=== PATIENT | female | born 2005 | race Two or more races ===

== ENCOUNTER 2023-06-30 18:06 | Emergency (ER) | payer OTHER, SELFPAY ==
--- NOTE | ~2023-06-30 | CT_ITS ---
EXAMINATION: CT ABDOMEN AND PELVIS WITH CONTRAST CLINICAL INFORMATION: Flank pain. COMPARISON: None available. TECHNIQUE: Multidetector volumetric images were obtained from the superior aspect of the liver through the pubic symphysis following administration 85 mL of Omnipaque 350 intravenous contrast. Sagittal and coronal reformatted images were obtained on the technologist's workstation. Oral contrast: No This CT examination was performed using dose optimization techniques as appropriate, variously including the following: *Automated exposure control *Adjustment of mA and/or kV according to patient size (this includes techniques or standardized protocols for targeted exams where dose is matched to indication/reason for exam; i.e. extremities or head) *Use of iterative reconstruction technique DLP: 413 mGy-cm FINDINGS: LUNG BASES: The visualized lung bases are unremarkable. LIVER, GALLBLADDER, AND BILIARY TREE: The liver is normal in size, shape, and attenuation. No focal hepatic lesion or biliary ductal dilatation is present. The gallbladder is unremarkable with no evidence of radiopaque gallstones, gallbladder wall thickening, or obvious pericholecystic inflammatory changes. PANCREAS: Unremarkable. SPLEEN: Unremarkable. ADRENAL GLANDS: Unremarkable. KIDNEYS AND URETERS: The kidneys are normal in size, shape, and attenuation. No hydronephrosis, hydroureter, or calculi seen. No perinephric stranding. BLADDER: There is mild urinary bladder wall thickening. GASTROINTESTINAL TRACT: The small and large bowel are unremarkable. A small tubular structure along the inferior cecum is likely a normal appendix. ABDOMINAL WALL: No significant hernia is appreciated. LYMPH NODES: Normal. VASCULAR: Unremarkable. PELVIC VISCERA: Unremarkable. OSSEOUS STRUCTURES: Unremarkable. CT/CT abdomen pelvis w IV con IMPRESSION: There is apparent mild urinary bladder wall thickening which needs correlation with urinalysis as cystitis considered. No other significant abnormality identified. Fleischner guidelines were followed.
[2023-06-30 18:17] VITALS: BP 101/52; PULSE 84; RESP 18; TEMP 36.4; O2SAT 97; BMI 22.9
--- NOTE | 2023-06-30 18:20 | ED.GENADULT ---
HPI - General Adult General Chief complaint: General Medical Stated complaint: back pain Time Seen by Provider: 06/30/23 18:37 Source: patient Mode of arrival: ambulatory Limitations: no limitations History of Present Illness HPI narrative: This is a 18-year-old female without significant medical history presenting to the emergency department for evaluation of bilateral flank pain, right worse than left, ongoing for the past week, atraumatic in nature. Patient does report dysuria, difficulty with urination. Rates the pain 10/10, nothing seems to be making it better. Patient reports subjective fevers and chills. Denies numbness, tingling, urinary/bowel incontinence/retention, weakness, nausea, vomiting, headache, vision changes, chest pain and shortness of breath. Patient does report recent UTI that was treated with antibiotics a few weeks ago Related Data Previous Rx's Medication Instructions Recorded cefuroxime axetil 250 mg tablet 250 mg PO BID 7 days #14 tabs 06/30/23 ketorolac 10 mg tablet 10 mg PO TID PRN pain 5 days #15 06/30/23 tabs Allergies Allergy/AdvReac Type Severity Reaction Status Date / Time No Known Allergies Allergy Verified 06/30/23 18:17 Review of Systems Review of Systems: Constitutional : No Weight loss, + Fever, + Chills, ENT/Mouth : No Hearing loss, No Ear Pain, No Nasal Congestion, No Sinus Pain, No Hoarseness, No sore throat, No Rhinorrhea, No Swallowing Difficulty Cardiovascular : No Chest Pain, No SOB Respiratory : No Cough, No Dyspnea Gastrointestinal : No Nausea, No Vomiting, No Diarrhea, No abdominal Pain, No Hematochezia, No Melena Genitourinary : No Dysuria, No Urinary Frequency, No Hematuria, No Urinary Incontinence, Musculoskeletal : positive back pain Skin : No Skin Lesions, No rash Neuro : No Weakness, No Numbness, No Paresthesias, no loss of bowel or bladder incontinence, no saddle anesthesia Yes all other systems are reviewed and are negative [facility] Past Medical History Attestation statement: The following information was validated with the patient. Source: old records reviewed and nursing notes reviewed Social History Social History Advance Directives: No Advance Directives Information Provided: No Physical Exam ED Vital Signs: Vital Signs - 24 hr 06/30/23 18:17 06/30/23 19:40 06/30/23 21:00 Temperature 97.5 F 99.1 F Pulse Rate 84 88 80 Respiratory Rate 18 16 Blood Pressure 101/52 L 114/59 L 116/54 L Pulse Oximetry 97 99 Oxygen Delivery Method Room Air Room Air 06/30/23 21:07 Temperature Pulse Rate Respiratory Rate 18 Blood Pressure Pulse Oximetry Oxygen Delivery Method BMI result Body Mass Index 22.9 Vital signs stable Appearance: Alert.? Oriented X3.? No acute distress.? Head: Normocephalic, atraumatic, no step-offs or deformities Eyes: Pupils equal, round and reactive to light.? CVS: Normal heart rate and rhythm.? Pulses normal.? Respiratory: No respiratory distress.? Breath sounds normal.? Abdomen: Soft and nontender.? Skin: Skin warm and dry.? Normal skin color.? Normal skin turgor.? Extremities: No lower extremity edema.? No calf ttp. 5/5 strength to bilateral upper and lower extremities Back: No midline tenderness, no C-spine tenderness, full range of motion, + CVA tenderness bilaterally w/ b/l lumbar paraspinous tenderness Neuro: Oriented X 3.? No motor deficit.? No sensory deficit. CN 2-12 intact . Ambulating with steady gait normal coordination. No saddle paresthesias. Course Course Course Narrative: 18 yold female presents to the ED for bilateral flank pain with dysruria since yesterday. labs and UA Ordered Reevaluation(s) Reevaluation #1: Patient's UA with leukocyte esterases trace bacteria and blood, concerning for possible UTI. Patient also noted to have leukocytosis 13.4 no left shift at this time infection suspected fluids as well as antibiotics ordered. Chemistry unremarkable. Negative lactic. CT abdomen and pelvis pending. Sign-out given to night provider Branden. Time: 18:58 Reevaluation #2: Patient received in sign-out at change of shift pending CT scan of the abdomen pelvis which did not show any acute findings. Symptoms consistent with pyelonephritis given the flank pain. She received ceftriaxone in the emergency department today. She will be discharged on cefuroxime. Discussed all findings with the patient Time: 21:30 Medications Administered Discontinued Medications Generic Name Dose Route Start Last Admin Trade Name Freq PRN Reason Stop Dose Admin Sodium Chloride 1,000 mls @ 999 mls/hr 06/30/23 18:45 06/30/23 20:56 Ns IV 06/30/23 19:45 Infused .Q1H1M TEVIN Infusion Sodium Chloride 1,878 mls @ 1,878 mls/hr 06/30/23 18:54 06/30/23 20:53 Ns 30 ml/kg infuse over 1 hr (1878 ml) 06/30/23 19:53 1,878 mls/hr IV Administration .Q1H STA Ceftriaxone Sodium 1 gm/ 50 mls @ 100 mls/hr 06/30/23 18:54 06/30/23 21:09 Sodium Chloride IV 06/30/23 19:23 Infused ONCE ONE Infusion Iohexol 100 ml 06/30/23 19:23 06/30/23 19:23 Iohexol 350 Mg/Ml 100 Ml Infus..Btl IV 06/30/23 19:24 85 ml ONCE ONE Administration Ketorolac Tromethamine 30 mg 06/30/23 18:37 06/30/23 18:46 Ketorolac Tromethamine 15 Mg/Ml Vial IVPUSH 06/30/23 18:38 30 mg ONCE ONE Administration Lidocaine 1 patch 06/30/23 18:38 06/30/23 18:48 Lidocaine 4 % Patch Adh..Patch TRANSDERMA 06/30/23 18:39 1 patch ONCE ONE Administration Protocol Morphine Sulfate 2 mg 06/30/23 20:55 06/30/23 21:07 Morphine Sulfate 2 Mg/Ml Cartridge IVPUSH 06/30/23 20:56 2 mg ONCE ONE Administration Protocol Ondansetron HCl 4 mg 06/30/23 20:55 06/30/23 21:07 Ondansetron Hcl 4 Mg/2 Ml Vial IVPUSH 06/30/23 20:56 4 mg ONCE ONE Administration Medical Decision Making Medical Decision Making [facility] Narrative: 1841 18-year-old female presents with atraumatic bilateral flank pain and urinary symptoms for the past week worsening. Reporting subjective fevers and chills. Also reporting recent UTI treated with antibiotics a few weeks ago. Physical exam significant for No midline tenderness, no C-spine tenderness, full range of motion, + CVA tenderness bilaterally w/ b/l lumbar paraspinous tenderness Concerns for possible pyelonephritis versus UTI versus cystitis versus kidney stone versus obstructing uropathy. I do not suspect cauda equina, epidural abscess, cord compression. Will rule out metabolic derangements although unlikely. Will also rule out . Plan at this time labs,ua, imaging Differential Diagnosis Differential Diagnoses: The differential diagnosis associated with the presentation includes Concerns for possible pyelonephritis versus UTI versus cystitis versus kidney stone versus obstructing uropathy. I do not suspect cauda equina, epidural abscess, cord compression. Will rule out metabolic derangements although unlikely. Will also rule out . Admission/Observation Consideration of admission/observation: Escalation of care including admission/observation considered possible Lab Data MDM Lab Attestation statement: I reviewed the patient's lab results. 06/30/23 18:35 06/30/23 18:35 Labs: Lab Results 06/30/23 06/30/23 06/30/23 Range/Units 18:29 18:35 18:41 WBC 13.4 H (4.8-10.8) X10*3/uL RBC 4.39 (4.20-5.50) X10*6/uL Hgb 13.2 (12.0-16.0) g/dl Hct 39.2 (37.0-47.0) % MCV 89.3 (80.0-98.0) fL MCH 30.1 (27.0-33.0) pg MCHC 33.7 (31.0-35.0) g/dl RDW 12.7 (11.0-16.0) % Plt Count 316 (160-400) X10*3/uL MPV 9.8 (9.4-12.3) fL Immature Gran % (Auto) 0.3 (0.0-0.4) % Neut % (Auto) 57.6 (45-73) % Lymph % (Auto) 31.5 (20-40) % [place] % (Auto) 8.3 (2-11) % Eos % (Auto) 1.9 (0-4) % Baso % (Auto) 0.4 (0-2) % Lymph # (Auto) 4.2 (1.2-4.9) X10*3/uL [place] # (Auto) 1.1 (0.1-1.2) X10*3/uL Eos # (Auto) 0.3 (0.0-0.4) X10*3/uL Baso # (Auto) 0.1 (0.0-0.2) X10*3/uL Abs Immat Gran (auto) 0.04 H (0.00-0.03) X10*3/uL Absolute Neuts (auto) 7.7 (2.0-8.3) x10*3/uL Absolute Nucleated RBC 0.000 (0.0-0.012) X10*3/uL Nucleated RBC % (auto) 0.0 (0.0-0.2) /100WBC Sodium 139 (135-145) mmol/L Potassium 4.0 (3.3-5.1) mmol/L Chloride 106 (96-108) mmol/L Carbon Dioxide 22 (22-29) mmol/L Anion Gap 15 (12-20) BUN 13 (9-16) mg/dL Creatinine 0.78 (0.5-1.4) mg/dL Estim Creat Clear Calc 103.4 Estimated GFR > 60 Random Glucose 89 (60-115) mg/dL Lactic Acid 1.0 (0.5-2.0) mmol/L Calcium 10.2 (8.4-10.2) mg/dL Total Bilirubin 0.3 (0.0-1.0) mg/dL AST 18 (5-31) U/L ALT 14 (0-31) U/L Alkaline Phosphatase 71 (39-117) U/L Total Protein 8.3 H (6.5-8.0) g/dL Albumin 4.4 (3.5-5.0) g/dL Urine Color Yellow Urine Appearance Clear Urine pH 6.0 (5.0-9.0) Ur Specific [place] 1.020 (1.005-1.025) Urine Protein Trace (Neg-Trace) mg/dL Urine Glucose (UA) Negative (Negative) mg/dL Urine Ketones Negative (Negative) mg/dL Urine Blood Small (1+) H (Negative) Urine Nitrite Negative (Negative) Ur Leukocyte Esterase Moderate (2+) H (Negative) Urine RBC 6-10 H (0-2) /HPF Urine WBC >50 H (0-5) /HPF Ur Squamous Epith Cells 0-2 (0-2) /HPF Urine Bacteria Trace (None Seen) Hyaline Casts 0-2 (0-2) /LPF Urine Test NEGATIVE (NEGATIVE) Chronic Conditions Patient?s care impacted by: Other (none) Critical Care Time Critical Care Time Critical Care Time: Yes Total Critical Care Time: 35 Attestation: I attest to this time spent taking care of the patient, obtaining history, physical, reviewing labs, imaging, speaking to my attending, speaking to specialist. Discharge Plan Discharge Clinical Impression: UTI symptoms, Acute flank pain Patient Disposition: Home, Self-Care Instructions: Kidney Infection (ED) Additional Instructions: Take your medications as prescribed. If you were prescribed antibiotics today, it is important that you take your medication to their entirety, do not skip any doses, do not finish them early. Follow-up with your primary care provider this week. Return to the emergency department with new or worsening symptoms. Such as fevers, chills, chest pain, shortness of breath, nausea, vomiting, dizziness, headache, vision changes, lethargy In case of emergency call 911 Prescriptions: New cefuroxime axetil 250 mg tablet 250 mg PO BID 7 Days Qty: 14 0RF ketorolac 10 mg tablet 10 mg PO TID PRN (Reason: pain) 5 Days Qty: 15 0RF Referrals: Physician,Unknown J [Primary Care Provider] - 2 days Stand Alone Forms: Work/School Release Interventions: ED Discharge Assessment Last Done: 06/30/23 21:58 Discharge Date/Time: 06/30/23 21:58
[2023-06-30 18:41] LABS: MANUAL DIFF FLAG NO
[2023-06-30 18:44] LABS: Appearance Urine Clear; Color Urine Yellow; Glucose Urine UA Negative (Negative); Leukocyte Esterase Urine Moderate (2+) (Negative); Nitrite Urine Negative (Negative); UMIC TRIGGER UACC YES; Urine Blood Small (1+) (Negative); Urine Ketones Negative (Negative); Urine Protein Trace mg/dL (Neg-Trace)
[2023-06-30 18:45] LABS: UPreg QC Valid YES; Urine Pregnancy NEGATIVE (NEGATIVE)
[2023-06-30 18:46] LABS: Bacteria Urine Trace (None Seen); Hyaline Casts Urine 0-2 /LPF (0-2); Squamous Epithelial Cell Urine 0-2 /HPF (0-2); UACC Culture Trigger YES; WBC Urine >50 /HPF (0-5)
[2023-06-30] MEDS: Ketorolac Tromethamine 15 MG/ML VIAL 30 MG IVPUSH (18:46)
[2023-06-30] MEDS: 0.9 % Sodium Chloride 1,000 ML 999 ML IV (18:46)
[2023-06-30 18:47] LABS: Basophils Absolute Auto 0.1 X10*3/uL (0.0-0.2); Basophils Percent Auto 0.4 % (0-2); Eosinophils Absolute Auto 0.3 X10*3/uL (0.0-0.4); Eosinophils Percent Auto 1.9 % (0-4); Hematocrit 39.2 % (37.0-47.0); Hemoglobin 13.2 g/dl (12.0-16.0); Imm Gran Abs Auto 0.04 X10*3/uL (0.00-0.03); Imm Gran Pct Auto 0.3 % (0.0-0.4); Lymphocytes Absolute Auto 4.2 X10*3/uL (1.2-4.9); Lymphocytes Percent Auto 31.5 % (20-40); Mean Corpuscular HGB Conc 33.7 g/dl (31.0-35.0); Mean Corpuscular Hemoglobin 30.1 pg (27.0-33.0); Mean Corpuscular Volume 89.3 fL (80.0-98.0); Mean Platelet Volume 9.8 fL (9.4-12.3); Monocytes Absolute Auto 1.1 X10*3/uL (0.1-1.2); Monocytes Percent Auto 8.3 % (2-11); Neutrophils Absolute Auto 7.7 x10*3/uL (2.0-8.3); Neutrophils Percent Auto 57.6 % (45-73); Platelet Count 316 X10*3/uL (160-400); Red Blood Count 4.39 X10*6/uL (4.20-5.50); Red Cell Distribution Width 12.7 % (11.0-16.0); White Blood Count 13.4 X10*3/uL (4.8-10.8)
[2023-06-30] MEDS: Lidocaine 4 % Patch ADH..PATCH 1 PATCH TRANSDERMA (18:48)
[2023-06-30 18:56] LABS: Alanine Aminotransferase 14 U/L (0-31); Albumin Level 4.4 g/dL (3.5-5.0); Alkaline Phosphatase 71 U/L (39-117); Anion Gap 15 (12-20); Aspartate Amino Transferase 18 U/L (5-31); Bilirubin Total 0.3 mg/dL (0.0-1.0); Blood Urea Nitrogen 13 mg/dL (9-16); Calcium 10.2 mg/dL (8.4-10.2); Carbon Dioxide 22 mmol/L (22-29); Chloride 106 mmol/L (96-108); Creatinine Clr Calc Pharmacy 103.4; Estimated Glomerular Filt Rate > 60; Glucose Random 89 mg/dL (60-115); Sodium 139 mmol/L (135-145); Total Protein 8.3 g/dL (6.5-8.0)
--- NOTE | 2023-06-30 18:57 | PC.NURSE ---
second set of blood cultures obtained, pt medicated per MAR- 1L NS infusing per order, plan for CT call lozoya within reach, care ongoing
[2023-06-30] MEDS: iohexoL 350 MG/ML 100 ML INFUS..BTL IV (19:23)
[2023-06-30] MEDS: cefTRIAXone sodium 1 GM in 0.9 % Sodium Chloride 50 ML IV (19:34)
[2023-06-30 19:40] VITALS: BP 114/59; PULSE 88; RESP 16; TEMP 37.3; O2SAT 99
[2023-06-30 21:00] VITALS: BP 116/54; PULSE 80
[2023-06-30 21:07] VITALS: RESP 18
[2023-06-30] MEDS: Morphine Sulfate 2 MG/ML CARTRIDGE IVPUSH (21:07)
[2023-06-30] MEDS: ondansetron HCL 4 MG/2 ML VIAL IVPUSH (21:07)
[2023-06-30 21:32] VITALS: BP 123/63; PULSE 89; RESP 16; TEMP 36.6; O2SAT 99
== END 2023-06-30 21:58 | disposition home or self-care (01) ==
PROVIDERS: Physician Assistant; Emergency Provider Emergency Medicine
DX: R10.9 Unspecified abdominal pain (principal); N39.0 Urinary tract infection, site not specified; B95.7 Other staphylococcus as the cause of diseases classified elsewhere
CPT/HCPCS: 36415; 74177; 80053; 81001; 81025; 83605; 85025; 87040; 87086; 87088; 87186; 96361; 96365; 96366; 96375; 99284; J0696; J1885; J2270; J2405; Q9967

== ENCOUNTER 2024-08-20 17:02 | Emergency (ER) | payer OTHER, SELFPAY ==
--- NOTE | ~2024-08-20 | XR_ITS ---
EXAMINATION: XR CHEST CLINICAL INFORMATION: coughing COMPARISON: None available. TECHNIQUE: Frontal view of the chest was obtained. FINDINGS: The heart is normal in size. The lungs are clear. No pleural effusion. No pneumothorax. No acute osseous abnormality. XR/XR chest 1V IMPRESSION: No acute cardiopulmonary disease. Electronically signed by: Cheo Simon DO 08/20/2024 10:53 PM [facility] [place]
[2024-08-20 17:25] VITALS: BP 102/65; PULSE 71; RESP 16; TEMP 36.8; O2SAT 97; BMI 20.3
[2024-08-20 19:02] LABS: MANUAL DIFF FLAG NO
[2024-08-20 19:04] LABS: Basophils Percent Auto 0.2 % (0-2); Eosinophils Absolute Auto 0.1 X10*3/uL (0.0-0.4); Eosinophils Percent Auto 0.8 % (0-4); Hematocrit 37.1 % (37.0-47.0); Hemoglobin 12.7 g/dl (12.0-16.0); Imm Gran Abs Auto 0.03 X10*3/uL (0.00-0.03); Imm Gran Pct Auto 0.3 % (0.0-0.4); Lymphocytes Percent Auto 8.3 % (20-40); Mean Corpuscular HGB Conc 34.2 g/dl (31.0-35.0); Mean Corpuscular Hemoglobin 30.2 pg (27.0-33.0); Mean Corpuscular Volume 88.3 fL (80.0-98.0); Mean Platelet Volume 9.2 fL (9.4-12.3); Monocytes Absolute Auto 0.4 X10*3/uL (0.1-1.2); Monocytes Percent Auto 3.2 % (2-11); Neutrophils Absolute Auto 9.9 x10*3/uL (2.0-8.3); Neutrophils Percent Auto 87.2 % (45-73); Platelet Count 238 X10*3/uL (160-400); Red Cell Distribution Width 12.8 % (11.0-16.0); White Blood Count 11.4 X10*3/uL (4.8-10.8)
[2024-08-20 19:10] LABS: IDNOW Serial# 58CA691E
[2024-08-20 19:11] LABS: Strep A Nucleic Acid Negative (Negative)
[2024-08-20 19:37] LABS: Alanine Aminotransferase 23 U/L (0-31); Albumin Level 4.1 g/dL (3.5-5.0); Alkaline Phosphatase 54 U/L (39-117); Anion Gap 9 (12-20); Aspartate Amino Transferase 24 U/L (5-31); Bilirubin Total 0.9 mg/dL (0.0-1.0); Blood Urea Nitrogen 13 mg/dL (9-16); Calcium 8.5 mg/dL (8.4-10.2); Carbon Dioxide 22 mmol/L (22-29); Chloride 110 mmol/L (96-108); Estimated Glomerular Filt Rate > 60; Glucose Random 96 mg/dL (60-115); HCG Quantitative < 2 mIU/mL; Lipase 21 U/L (8-78); Potassium 3.9 mmol/L (3.3-5.1); Sodium 137 mmol/L (135-145); Total Protein 7.4 g/dL (6.5-8.0)
[2024-08-20 19:39] LABS: Influenza A PCR NEGATIVE (Negative); Influenza B PCR NEGATIVE (Negative); Resp Syncy Virus RNA Qual PCR NEGATIVE (Negative); SARS COV2 PCR INHOUSE NEGATIVE (Negative)
== END 2024-08-21 00:37 | disposition left against medical advice (07) ==
PROVIDERS: Physician Assistant; Emergency Provider Internal Medicine
DX: R05.9 Cough, unspecified (principal); R50.9 Fever, unspecified; R51.9 Headache, unspecified; R11.2 Nausea with vomiting, unspecified; Z03.818 Encounter for observation for suspected exposure to other biological agents ruled out; Z53.21 Procedure and treatment not carried out due to patient leaving prior to being seen by health care provider
CPT/HCPCS: 0241U; 71045; 80053; 83690; 84702; 85025; 87651; 99281

== ENCOUNTER 2024-08-21 17:19 | Emergency (ER) | payer OTHER, SELFPAY ==
[2024-08-21 18:11] VITALS: BP 102/68; PULSE 64; RESP 18; TEMP 37; O2SAT 100; BMI 20.4
--- NOTE | 2024-08-21 18:13 | ED.GENADULT ---
HPI - General Adult General Stated complaint: Abdominal pain/Seen yesterday Time Seen by Provider: 08/21/24 18:13 Source: patient, RN notes reviewed and old records reviewed Mode of arrival: ambulatory Limitations: no limitations History of Present Illness ED Provider: Jim Yan PA-C HPI narrative: 19-year-old female with history of UTI presents the ER for evaluation of lower abdominal pain, nausea, vomiting and feeling unwell for the last 3 days. She was seen here yesterday but left prior to completing treatment. She had labs and a urinalysis done but does not know results of them. She has ongoing symptoms today it would like to know the results of her workup done yesterday. She reports pain with urination, bladder fullness as well. She reports some mild lower back pain, no flank pain. No fevers or chills. MD complaint: Dysuria, nausea and vomiting Onset (ago): day(s) (3) Location: back and abdomen Radiation: non-radiation Severity: moderate Quality: aching Pain Consistency: constant Relieving factors: none Exacerbating factors: none Associated symptoms: denies other symptoms Treatments prior to arrival: none Related Data Previous Rx's ?Medication ?Instructions ?Recorded cefuroxime axetil 250 mg tablet 250 mg PO BID 7 days #14 tabs 06/30/23 ketorolac 10 mg tablet 10 mg PO TID PRN pain 5 days #15 06/30/23 tabs cefuroxime axetil 250 mg tablet 250 mg PO BID 7 days #14 tabs 08/21/24 ondansetron 4 mg disintegrating 4 mg PO Q8H PRN nausea and 08/21/24 tablet vomiting #7 tabs Allergies Allergy/AdvReac Type Severity Reaction Status Date / Time No Known Allergies Allergy Verified 08/21/24 18:16 Review of Systems Review of Systems: Yes all other systems are reviewed and are negative Physical Exam ED Appearance: Alert. Oriented X3. No acute distress. Head: normocephalic, atraumatic. Eyes: Pupils equal, round and reactive to light. ENT: Pharynx normal. No tonsillar swelling or exudate. Neck: Normal inspection. Neck supple. CVS: Normal heart rate and rhythm. Pulses normal. Respiratory: No respiratory distress. Breath sounds normal. Abdomen: Soft and nontender. +BS x4. no cva tenderness Skin: Skin warm and dry. Normal skin color. Normal skin turgor. No rashes. Extremities: No lower extremity edema. No joint swelling. Neuro/psych: Oriented X 3. grossly normal, nonfocal. Normal speech and cognition. Medical Decision Making Medical Decision Making [facility] Narrative: 19-year-old female presents to the ER for evaluation of lower abdominal pain, nausea, vomiting for the last 3 days. She also has urinary symptoms of dysuria, urgency and frequency along with low back pain. No flank pain. Doubt kidney stone. She has stable vital signs without any evidence of sepsis. Lab work from yesterday was reviewed. She had a mild leukocytosis of 11.4. Her H&H was stable. Her renal function was normal. Her urinalysis was positive for infection, negative for . Will treat with oral antibiotics and antiemetics. She appears well, nontoxic. Stable for discharge home with oral antibiotics. Return precautions were discussed. Differential Diagnosis Differential Diagnoses: The differential diagnosis associated with the presentation includes UTI, pyelonephritis, gastroenteritis, COVID, flu, other viral syndrome, External Record Review External record reviewed: Outpatient record, Prior outpatient labs and Prior outpatient radiology Prescription Management I considered prescription management with: Pain Medication and Antibiotic Critical Care Time Critical Care Time Critical Care Time: No Discharge Plan Discharge Clinical Impression: Acute UTI Patient Disposition: Home, Self-Care Instructions: Urinary Tract Infection in Women (DC) Additional Instructions: You have a UTI Take the prescribed antibiotics as directed, complete the entire course and do not miss any doses Drink plenty of water If you develop new or worsening symptoms call 911 or come back to the ER for further evaluation. Prescriptions: New cefuroxime axetil 250 mg tablet 250 mg PO BID 7 Days Qty: 14 0RF ondansetron 4 mg tablet,disintegrating 4 mg PO Q8H PRN (Reason: nausea and vomiting) Qty: 7 0RF No Action cefuroxime axetil 250 mg tablet 250 mg PO BID 7 Days Qty: 14 0RF ketorolac 10 mg tablet 10 mg PO TID PRN (Reason: pain) 5 Days Qty: 15 0RF Stand Alone Forms: Work/School Release Print Language: Spanish
[2024-08-21 18:29] VITALS: BP 102/68; PULSE 64; RESP 18; TEMP 37; O2SAT 100
== END 2024-08-21 20:29 | disposition home or self-care (01) ==
LOC: HO.ED 20:30
PROVIDERS: Emergency Provider Emergency Medicine Emergency Medical Services
DX: N39.0 Urinary tract infection, site not specified (principal); R10.30 Lower abdominal pain, unspecified; R11.2 Nausea with vomiting, unspecified
CPT/HCPCS: 99282; 99283